=== PATIENT | male | born 1970 | race Caucasian/White ===

== ENCOUNTER 2017-12-24 02:03 | Inpatient (IN) | END 2017-12-30 11:50 | disposition home health service (06) | DRG 93 ==

== ENCOUNTER 2018-06-10 23:44 | Emergency (ER) | payer BC ==
[~2018-06-10] VITALS: Ht 167.6 cm; Wt 87.9 kg
[~2018-06-10 23:44] MED LIST: ACET325T40 PO; CYCL10TA7 PO; GABA300C16 PO; GEMF600T8 PO; HYDR-3609 PO; INSU100I12 SQ; INSU100I17 SQ; METF-849 PO; SENOKOTS PO
[2018-06-10 23:48] VITALS: Ht 167.6 cm; Wt 87.9 kg
[2018-06-11] MEDS ORDERED: ONDANSETRON 4 MG INJ IV STA (01:23)
[2018-06-11] MEDS ORDERED: morphine 4 MG/ML VIAL IV STA (01:23)
[2018-06-11] MEDS ORDERED: METHYLPREDNISOLONE 125 MG INJ IV ONE (03:00)
[2018-06-11] MEDS ORDERED: APRE30TA2 PO (03:22)
[2018-06-11] MEDS ORDERED: INSU100I33 SQ (03:22)
[2018-06-11] MEDS ORDERED: METF100010 PO (03:22)
[2018-06-11] MEDS ORDERED: morphine 2 MG INJ IV STA (04:35)
[2018-06-11 04:50] VITALS: BP 156/91; PULSE 83; RESP 16
[2018-06-11] MEDS ORDERED: ONDANSETRON 4 MG INJ IV PRN (05:00)
--- NOTE | 2018-06-30 03:58 | ERD ---
ER Documentation Chief Complaint Chief Complaint pt reports numbness and weakness in BLE HPI This is a 48-year-old with a history of transverse myelitis who comes in with complaints of bilateral lower extremity weakness and numbness that is getting progressively worse today. He says this is a normal flare for him. Denies fevers chills nausea vomiting. Denies any bowel or bladder incontinence. ROS All systems reviewed and are negative except as per history of present illness. Medications Home Meds Active Scripts Sennosides/Docusate Sodium (Dok Plus Tablet) 1 Each Tablet, 2 TAB PO HS for 7 Days, TAB Prov:JEREMIAH BORJAS MD 12/29/17 Acetaminophen (MAPAP) 325 Mg Tablet, 650 MG PO Q6H PRN for PAIN LEVEL 1-3 OR FEVER for 1 Day, TAB Prov:JEREMIAH BORJAS MD 12/29/17 Reported Medications Apremilast (Otezla) 30 Mg Tablet, 30 MG PO BID for 30 Days, #60 06/11/18 Insulin Glargine,Hum.rec.anlog (Basaglar Kwikpen U-100) 100 Unit/1 Ml Insuln.pen, 48 UNITS SQ QAM for 30 Days INJECT 48 UNITS SUBQ EVERY MORNING. HOLD IF GLUCOSE LESS THAN 100 OR IF NO FOOD 06/11/18 Metformin Hcl* (Metformin Hcl*) 1,000 Mg Tablet, 1000 MG PO BID for 30 Days, #60 06/11/18 Insulin Lispro (Humalog Kwikpen U-100) 100 Unit/1 Ml Insuln.pen, 15 UNIT SQ, EA Inject 15 units subcutaneously 3 times daily before meals,Hold if glucose< 100 or IF not eating 12/24/17 Gabapentin* (Gabapentin*) 300 Mg Capsule, 300 MG PO TID, #90 CAP 12/24/17 Gemfibrozil* (Gemfibrozil*) 600 Mg Tablet, 600 MG PO BID, TAB 12/24/17 Allergies Allergies: Coded Allergies: No Known Allergies (Unverified Allergy, Unknown, 12/24/17) PMhx/Soc History of Surgery: Yes (appendectomy, jaw Sx, knee Sx) Anesthesia Reaction: No 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 Neck: Full range of motion. No meningismus. Resp: Clear to auscultation bilaterally Cardio: Regular rate and rhythm, no murmurs Abd: Soft, non tender, non distended. Normal bowel sounds Skin: No petechiae or rashes Back: No midline or flank tenderness Ext: No cyanosis, or edema Neur: Awake and alert Psych: Normal Mood and Affect Results 24 hrs Laboratory Tests Test 06/11/18 01:30 White Blood Count 9.6 10^3/ul Red Blood Count 4.96 10^6/ul Hemoglobin 13.7 g/dl Hematocrit 41.2 % Mean Corpuscular Volume 83.1 fl Mean Corpuscular Hemoglobin 27.6 pg Mean Corpuscular Hemoglobin Concent 33.3 g/dl Red Cell Distribution Width 14.4 % Platelet Count 317 10^3/UL Mean Platelet Volume 10.0 fl Immature Granulocytes % 0.400 % Neutrophils % 55.9 % Lymphocytes % 34.5 % Monocytes % 7.3 % Eosinophils % 1.1 % Basophils % 0.8 % Nucleated Red Blood Cells % 0.0 /100WBC Immature Granulocytes # 0.040 10^3/ul Neutrophils # 5.4 10^3/ul Lymphocytes # 3.3 10^3/ul Monocytes # 0.7 10^3/ul Eosinophils # 0.1 10^3/ul Basophils # 0.1 10^3/ul Nucleated Red Blood Cells # 0.0 10^3/ul Prothrombin Time 11.9 Sec Prothrombin Time Ratio 0.9 INR International Normalized Ratio 0.87 Activated Partial Thromboplast Time 24.7 Sec Sodium Level 144 mmol/L Potassium Level 3.8 mmol/L Chloride Level 109 mmol/L Carbon Dioxide Level 25 mmol/L Anion Gap 10 Blood Urea Nitrogen 14 mg/dl Creatinine 0.65 mg/dl Est Glomerular Filtrat Rate mL/min > 60 mL/min Glucose Level 111 mg/dl Calcium Level 9.3 mg/dl Total Bilirubin 0.1 mg/dl Direct Bilirubin 0.00 mg/dl Indirect Bilirubin 0.1 mg/dl Aspartate Amino Transf (AST/SGOT) 20 IU/L Alanine Aminotransferase (ALT/SGPT) 17 IU/L Alkaline Phosphatase 95 IU/L Total Protein 7.7 g/dl Albumin 4.3 g/dl Globulin 3.40 g/dl Albumin/Globulin Ratio 1.26 Lipase 128 U/L Current Medications Medications Dose Sig/Pako Start Time Status Last (Trade) Ordered Route PRN Stop Time Admin Dose Reason Admin Morphine 4 mg ONCE STAT 06/11/18 DC 06/11/18 Sulfate IV 01:23 01:40 (morphine) 06/11/18 01:25 Ondansetron 4 mg ONCE STAT 06/11/18 DC 06/11/18 HCl (Zofran IV 01:23 01:40 Inj) 06/11/18 01:25 125 mg ONCE ONCE 06/11/18 DC 06/11/18 Methylprednis IV 03:00 03:37 olone Sodium 06/11/18 03:17 Succinate (Solu-Medrol) Morphine 2 mg ONCE STAT 06/11/18 DC 06/11/18 Sulfate IV 04:35 04:45 (morphine) 06/11/18 04:39 Ondansetron 4 mg ONCE PRN 06/11/18 DC 06/11/18 HCl (Zofran IV NAUSEA 05:00 04:45 Inj) 06/11/18 05:00 Procedures/MDM Medical decision making: Patient with acute transverse myelitis P he will need admission for further evaluation management and treatment. Patient is capitated to [facility]. Dr. Penaloza accepts patient in transfer. Departure Diagnosis: Primary Impression: Acute transverse myelitis Condition: ERICA Fulton Jun 30, 2018 03:58
== END 2018-06-11 04:50 | disposition short-term general hospital (02) ==
LOC: E/R 23:44
DX: G37.3 Acute transverse myelitis in demyelinating disease of central nervous system (principal); E11.9 Type 2 diabetes mellitus without complications; F17.210 Nicotine dependence, cigarettes, uncomplicated; M79.671 Pain in right foot; Z79.4 Long term (current) use of insulin
CPT/HCPCS: 80053; 83690; 85025; 85610; 85730; J2270; J2405; J2930; 36415; 96374; 96375; 96376

== ENCOUNTER 2018-10-13 20:03 | Emergency (ER) | payer BC ==
[~2018-10-13] VITALS: Ht 170.2 cm; Wt 89.0 kg
[~2018-10-13 20:03] MED LIST changes: +APRE30TA2 PO; -CYCL10TA7 PO; -HYDR-3609 PO; -INSU100I17 SQ; +INSU100I33 SQ; -METF-849 PO; +METF100010 PO
[2018-10-13 20:18] VITALS: Ht 170.2 cm; Wt 89.0 kg
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
[2018-10-13] MEDS ORDERED: KETOROLAC 15 MG INJ IV STA (23:58)
[2018-10-14] MEDS ORDERED: LORAZEPAM 0.5 MG TAB PO ONE
[2018-10-14] MEDS ORDERED: IBUP-1542 PO (00:35)
[2018-10-14 01:04] VITALS: BP 140/81; PULSE 69; RESP 18
== END 2018-10-14 01:05 | disposition home or self-care (01) ==
LOC: E/R 20:03
DX: R07.9 Chest pain, unspecified (principal); E11.9 Type 2 diabetes mellitus without complications; I10 Essential (primary) hypertension; F41.9 Anxiety disorder, unspecified; Z79.4 Long term (current) use of insulin; Z87.891 Personal history of nicotine dependence
CPT/HCPCS: 71045; 93005; 96372; J1885; Z7502; Z7610